=== PATIENT | female | born 1970 | race Caucasian/White ===

== ENCOUNTER 2018-06-24 16:45 | Emergency (ER) | payer MEDICAID ==
[~2018-06-24] VITALS: Ht 167.6 cm; Wt 106.1 kg
[~2018-06-24 16:45] MED LIST: ACETAMINOPHEN-1 EAC1 PO; AMITRIPTYLINE H10 M3 PO; APAP W/CODEINE1 TA2 PO; BIOTIN5000 MCG PO; CIPRO500 MG PO; CIPROFLOXACIN500 M1 PO; CIPROFLOXACIN500 M3 PO; CIPROFLOXACIN500 MG PO; DEPAKOTE ER500 MG PO; DICLOFENAC SODI75 MG PO; DIFLUCAN150 MG PO; DOXYCYCLINE 10100 MG PO; FLAGYL500 MG PO; FLONASE 0.05%50 MCG NASAL; IBUPROFEN 800800 M1 PO; KLOR-CON 1010 MEQ PO; LASIX 20 MG TAB20 MG PO; MICARDIS 20MG T20 M1 PO; MIRALAX17 GM PO; NEURONTIN300 MG PO; NOHOMEMEDICATIONS; NORCO 5-325 TA1 EACH PO; OXYBUTYNIN 5 MG5 M2 PO; PARAFON FORTE500 MG PO; PENICILLIN V P500 MG PO; PENICILLIN VK500 M1 PO; PERCOCET PO; PRAZOSIN 1 MG CA1 MG PO; PREDNISONE 10 M10 MG PO; RISPERDAL 1 MG T1 MG PO; SENNA LAXATIVE1 EACH PO; SEROQUEL 50 MG50 MG PO; SINGULAIR 10 MG10 M1 PO; TRAMADOL 50 MG50 MG PO; TRAZODONE HCL100 MG PO
[2018-06-24 16:57] VITALS: BP 141/78
[2018-06-24] MEDS ORDERED: HYDROXYCHLOROQ200 M1 PO (17:02)
[2018-06-24] MEDS ORDERED: MICARDIS40 MG PO (17:06)
[2018-06-24] MEDS ORDERED: HEARTBURN PO (17:08)
[2018-06-24] MEDS ORDERED: FLEXERIL PO (17:19)
[2018-06-24] MEDS ORDERED: PREDNISONE 20 M20 MG PO (17:19)
[2018-06-24] MEDS ORDERED: NORCO 5-325 TA1 EACH PO (17:19)
== END 2018-06-24 17:25 | disposition home or self-care (01) ==
LOC: M.ERS 16:45
DX: M54.41 Lumbago with sciatica, right side (principal); Z88.6 Allergy status to analgesic agent

== ENCOUNTER 2019-11-01 10:09 | Emergency (ER) | payer MEDICAID ==
[~2019-11-01] VITALS: Ht 167.6 cm; Wt 74.8 kg
[~2019-11-01 10:09] MED LIST changes: +FLEXERIL PO; +HEARTBURN PO; +HYDROXYCHLOROQ200 M1 PO; +MICARDIS40 MG PO; +PREDNISONE 20 M20 MG PO
[2019-11-01 10:46] LABS: URINE BILIRUBIN NEGATIVE (Negative); URINE BLOOD NEGATIVE (Negative); URINE CLARITY CLEAR; URINE COLOR YELLOW; URINE GLUCOSE-RANDOM NEGATIVE (Negative); URINE KETONES NEGATIVE (Negative); URINE LEUKOCYTES-REFLEX TRACE (Negative); URINE NITRITE-REFLEX NEGATIVE (Negative); URINE PROTEIN NEGATIVE (Negative); URINE SPECIFIC GRAVITY <= 1.005 (1.005-1.030); URINE UROBILINOGEN 0.2 E.U./dl (0.2-1.0)
[2019-11-01 10:57] LABS: BACTERIA-REFLEX 1-9 Few /HPF (None Seen); CASTS None Seen /LPF (None Seen); CRYSTALS None Seen /LPF (None Seen); MUCUS None Seen strn/LPF (None Seen); SQUAMOUS 0-3 Few /LPF (0-3); URINE RBC 0-2 Rare /HPF (0-2); URINE WBC-REFLEX 0-5 Rare /HPF (0-5)
[2019-11-01] MEDS ORDERED: DIFLUCAN150 MG PO (11:21)
[2019-11-01 12:15] VITALS: BP 159/92
== END 2019-11-01 12:20 | disposition home or self-care (01) ==
LOC: M.ERS 10:09
PROVIDERS: Physician Assistant
DX: N89.8 Other specified noninflammatory disorders of vagina (principal); G89.29 Other chronic pain

== ENCOUNTER 2020-03-11 17:06 | Emergency (ER) | payer MEDICAID ==
[~2020-03-11] VITALS: Ht 167.6 cm; Wt 79.4 kg
[2020-03-11] MEDS ORDERED: TIZANIDINE HCL4 M1 PO (17:30)
[2020-03-11] MEDS ORDERED: IBUPROFEN 600600 M1 PO (17:43)
[2020-03-11] MEDS ORDERED: ZOFRAN ODT4 MG PO (17:43)
[2020-03-11 17:47] LABS: URINE BILIRUBIN NEGATIVE (Negative); URINE BLOOD NEGATIVE (Negative); URINE CLARITY CLEAR; URINE COLOR YELLOW; URINE GLUCOSE-RANDOM NEGATIVE (Negative); URINE KETONES NEGATIVE (Negative); URINE LEUKOCYTES-REFLEX TRACE (Negative); URINE NITRITE-REFLEX NEGATIVE (Negative); URINE PROTEIN NEGATIVE (Negative); URINE SPECIFIC GRAVITY >= 1.030 (1.005-1.030)
[2020-03-11 17:50] LABS: ABSOLUTE BASOPHILS 0.1 thou/uL (0.0-0.2); ABSOLUTE EOSINOPHILS 0.2 thou/uL (0.0-0.7); ABSOLUTE LYMPHOCYTES 2.7 thou/uL (0.8-5.3); ABSOLUTE MONOCYTES 0.5 thou/uL (0.0-1.2); ABSOLUTE NEUTROPHILS 4.6 thou/uL (1.6-8.1); BASOPHILS 0.9 %; EOSINOPHILS 2.3 %; HEMATOCRIT 39.2 % (37.0-47.0); HEMOGLOBIN 13.3 gm/dL (12.0-15.0); LYMPHOCYTES 33.3 %; MCH 28.4 pg (26.0-34.0); MCV 83.4 fL (80.0-100.0); MONOCYTES 6.4 %; MPV 7.2 fl. (7.2-11.1); NUCLEATED RBCS 0 /100WBC; PLATELET COUNT* 344 thou/uL (150-400); POLYS 57.1 %; RDW-CV 13.6 % (10.5-14.5)
[2020-03-11 17:55] LABS: MUCUS 4-6 Moderate strn/LPF (None Seen); SQUAMOUS >10 Many /LPF (0-3)
[2020-03-11 17:57] LABS: CASTS None Seen /LPF (None Seen)
[2020-03-11 17:58] LABS: BACTERIA-REFLEX 1-9 Few /HPF (None Seen); CRYSTALS None Seen /LPF (None Seen); URINE RBC None Seen /HPF (0-2); URINE WBC-REFLEX 0-5 Rare /HPF (0-5)
[2020-03-11 18:02] LABS: CALCIUM 8.3 mg/dL (8.5-10.1); CREATININE 0.7 mg/dL (0.6-1.3); POTASSIUM 3.9 mmol/L (3.5-5.1)
[2020-03-11 18:06] LABS: ALBUMIN 3.6 g/dL (3.4-5.0); TOTAL BILIRUBIN 0.3 mg/dL (<0.1-1.0); TOTAL PROTEIN 7.4 g/dL (6.4-8.2)
[2020-03-11] MEDS ORDERED: BENTYL 20 MG TA20 M1 PO (19:46)
[2020-03-11] MEDS ORDERED: PHENERGAN 25 MG25 M1 PO (19:46)
[2020-03-11 20:05] VITALS: BP 142/70
--- NOTE | 2020-03-12 11:02 | EKG ---
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: [facility] : 1970 Requested By: Krista Mohr Order Number: [id number] MD: Hector Gallardo Measurements Intervals [place] Rate: 70 P: 46 DE: 173 QRS: 39 QRSD: 93 T: 14 QT: 417 QTc: 450 Interpretive Statements Sinus rhythm Compared to ECG 02/17/2017 17:43:25 No significant changes Electronically Signed On 03-12-2020 11:00:31 CDT by Hector Gallardo [email or web address] <ELECTRONICALLY SIGNED> By: Hector Gallardo MD, [facility] 03/12/20 1100 43 43 Hector Gallardo MD, FAC /EPI
== END 2020-03-11 20:09 | disposition home or self-care (01) ==
LOC: M.ERS 17:06
PROVIDERS: Nurse Practitioner Family
DX: K52.9 Noninfective gastroenteritis and colitis, unspecified (principal); G89.29 Other chronic pain

== ENCOUNTER 2021-10-10 11:50 | Emergency (ER) | payer MEDICAID ==
[~2021-10-10] VITALS: Ht 167.6 cm; Wt 82.1 kg
[~2021-10-10 11:50] MED LIST changes: +BENTYL 20 MG TA20 M1 PO; +IBUPROFEN 600600 M1 PO; +PHENERGAN 25 MG25 M1 PO; +TIZANIDINE HCL4 M1 PO; +ZOFRAN ODT4 MG PO
[2021-10-10 11:59] VITALS: BP 150/85
[2021-10-10] MEDS ORDERED: HYDROCODON-ACE1 EAC7 PO (12:37)
[2021-10-10] MEDS ORDERED: CLEOCIN HCL300 MG PO (12:40)
== END 2021-10-10 12:50 | disposition home or self-care (01) ==
LOC: M.ERS 11:50
DX: K04.7 Periapical abscess without sinus (principal); M19.90 Unspecified osteoarthritis, unspecified site